=== PATIENT | male | born 1990 | race Caucasian/White ===

== ENCOUNTER 2018-04-04 07:14 | Emergency (ER) | payer SELFPAY ==
[~2018-04-04] VITALS: Ht 185.4 cm; Wt 72.7 kg
[2018-04-04 07:19] VITALS: Ht 185.4 cm; Wt 72.7 kg
[2018-04-04 07:55] LABS: BASOPHILS 0.1 % (0-2); EOSINOPHILS 0.5 % (0-7); HEMATOCRIT 42.1 % (42.0-54.0); HEMOGLOBIN 14.8 g/dL (13.5-17.5); IMMATURE GRANULOCYTES 0.2 % (0-5); LYMPHOCYTES 8.8 % (15-50); MCH 32.5 pg (26.0-34.0); MCHC 35.2 g/dL (31.0-37.0); MCV 92.3 fL (80.0-100.0); MEAN PLATELET VOLUME 10.2 fL (7.4-10.4); NEUTROPHILS 84.4 % (40-80); PLATELET COUNT 167 10x3/uL (130-400); RBC 4.56 10x6/uL (4.20-6.10); RDW 12.7 % (11.5-14.5); WBC 13.6 10x3/uL (4.8-10.8)
[2018-04-04 08:19] LABS: ALKALINE PHOSPHATASE 71 U/L (46-116); ALT (SGPT) 20 U/L (10-68); BILIRUBIN - TOTAL 0.52 mg/dL (0.2-1.3); CALC OSMOLALITY 278 mosm/kg (275-300); CALCIUM 8.8 mg/dL (8.5-10.1); CARBON DIOXIDE 27.9 mmol/L (21.0-32.0); CHLORIDE - SERUM 104 mmol/L (98-107); CREATININE - SERUM 0.8 mg/dL (0.6-1.3); GLUCOSE 87 mg/dL (74-106); POTASSIUM - SERUM 3.6 mmol/L (3.5-5.1); PROTEIN - SERUM 7.3 g/dL (6.4-8.2); SODIUM 141 mmol/L (136-145); UREA NITROGEN 10 mg/dL (7-18); eGFR NON AFRICAN AMERICAN > 90 mL/min (90-120)
[2018-04-04 08:24] LABS: AMYLASE - SERUM 20 U/L (25-115); LIPASE 85 U/L (73-393); TROPONIN-I < 0.017 ng/mL (0.000-0.060)
[2018-04-04 09:47] LABS: APPEARANCE HAZY (CLEAR); COLOR YELLOW (YELLOW); GLUCOSE NEGATIVE (NEGATIVE); KETONE LARGE mg/dL (NEGATIVE); NITRITE NEGATIVE (NEGATIVE); PROTEIN NEGATIVE (NEGATIVE)
[2018-04-04 09:48] LABS: BILIRUBIN NEGATIVE (NEGATIVE); UROBILINOGEN NORMAL (NORMAL)
[2018-04-04 10:32] LABS: APTT 27.9 SECONDS (22.8-39.4); INR 1.09 (0.85-1.17); PROTIME 13.7 SECONDS (11.6-15.0)
[2018-04-04 10:33] LABS: D-DIMER-QUANTITATIVE < 0.27 ug/mLFEU (0.20-0.54)
[2018-04-04 10:41] LABS: CKMB 1.1 U/L (0.0-3.6); CREATINE KINASE 101 UL (21-232); TROPONIN-I < 0.017 ng/mL (0.000-0.060)
[2018-04-04] MEDS ORDERED: CYCLOBENZAPRINE10 MG PO (11:02)
[2018-04-04] MEDS ORDERED: ACETAMINOPHEN500 M1 PO (11:02)
[2018-04-04] MEDS ORDERED: ZPAK PO (11:02)
[2018-04-04] MEDS ORDERED: MEDROL DOSE PACK4 MG PO (11:02)
[2018-04-04] MEDS ORDERED: IBUPROFEN800 MG PO (11:02)
[2018-04-04 11:22] VITALS: BP 116/68
== END 2018-04-04 11:22 | disposition home or self-care (01) ==
LOC: D.ER 07:14
PROVIDERS: Family Medicine
DX: R09.1 Pleurisy (principal); M54.6 Pain in thoracic spine; J40 Bronchitis, not specified as acute or chronic; M79.1 Myalgia; F17.200 Nicotine dependence, unspecified, uncomplicated